=== PATIENT | female | born 1960 | race Caucasian/White ===

== ENCOUNTER → 2016-11-25 | Outpatient (CLI) | payer OTHER ==
[~2016-11-25] MED LIST: NKHM PO
[2016-11-25 07:13] LABS: BASO # 0.1 10*3/uL (0.0-0.1); BASO % 0.7 % (0.0-1.0); EOS # 0.2 10*3/uL (0.0-0.4); EOS % 3.1 % (1.0-4.0); HEMATOCRIT 45.5 % (37.0-47.0); HEMOGLOBIN 15.7 g/dl (12.0-16.0); LYMPH # 2.1 10*3/uL (1.3-4.4); LYMPH % 28.5 % (27.0-41.0); MEAN CELL VOLUME 92.7 fl (81.0-99.0); MEAN CORPUSCULAR HGB CONC 34.5 g/dl (33.0-37.0); MEAN PLATELET VOLUME 10.3 fl (9.6-12.3); MONO # 0.7 10*3/uL (0.1-1.0); MONO % 9.7 % (3.0-9.0); NEUT # 4.1 10*3/uL (2.3-7.9); NEUT % 57.6 % (47.0-73.0); PLATELET COUNT AUTOMATED 218 10*3/uL (130-400); RED BLOOD COUNT 4.91 10*6/uL (4.10-5.10); RED CELL DISTRI WIDTH 12.8 % (0-14.5); WHITE BLOOD COUNT 7.2 10*3/uL (4.8-10.8)
[2016-11-25 07:27] LABS: ALKALINE PHOSPHATASE 61 U/L (45-117); BILIRUBIN, TOTAL 0.4 mg/dl (0.2-1.0); BUN 21 mg/dl (7-24); CARBON DIOXIDE 28 mmol/L (21-32); CHLORIDE 106 mmol/L (98-107); CHOLESTEROL 224 mg/dL (<200); EST GLOM FILT AFRICAN AMERICAN > 60 ml/min; GLUCOSE 92 mg/dL (65-99); HDL CHOLESTEROL 91 mg/dl (40-60); LDL CHOLESTEROL 122 mg/dL (9-159); POTASSIUM 4.3 mmol/L (3.5-5.1); SGOT/AST 16 IU/L (3-35); SGPT/ALT 16 U/L (12-78); SODIUM 140 mmol/L (136-145); TRIGLYCERIDES 54 mg/dl (<150); VLDL CHOLESTEROL 11 mg/dL (6-40)
== END | disposition home or self-care (01) ==
LOC: LAB 06:30
PROVIDERS: Family Medicine
DX: Z00.01 Encounter for general adult medical examination with abnormal findings (principal); E55.9 Vitamin D deficiency, unspecified; R79.89 Other specified abnormal findings of blood chemistry

== ENCOUNTER 2017-03-21 08:26 | Inpatient (IN) | payer OTHER ==
[~2017-03-21] VITALS: Ht 157.5 cm; Wt 46.7 kg
--- NOTE | ~2017-03-21 | ST ---
[place], [place] EXERCISE STRESS TEST REPORT NAME: ESTHER RIVERA UNIT #: [id number] ROOM: 529 DOCTOR: BLAYNE CRAVEN MD BIRTHDATE: [birth year] DOS: 03/22/2017 INDICATION: Chest pain. PROCEDURE: The patient was exercised on treadmill using Alex protocol. The patient exercised for 10 minutes and 30 seconds, reaching 94% of her maximum predicted heart rate. Double product was 30,070. Test was terminated due to achieving target heart rate. No complaint of chest pain, chest pressure, heaviness, tightness. BLOOD PRESSURE RESPONSE: The resting blood pressure 130/86 with ending blood pressure 194/80. ELECTROCARDIOGRAM INTERPRETATION: Resting electrocardiogram showed sinus bradycardia, heart rate of 55, RSR prime in V1, poor R-wave progression, mild nonspecific ST-T changes. At the peak of the stress test, there was no evidence of any significant ST or T-wave changes suggestive of myocardial ischemia. No arrhythmias were noted. SUMMARY: 1. Adequate stress test with above average functional capacity. 2. Negative treadmill stress test for stress induced myocardial ischemia. 3. No arrhythmias were noted. 4. Normal blood pressure at rest with normal blood pressure response to exercise. 5. Nuclear images will be reported separately. BLAYNE CRAVEN MD CM:STRESS:EXERCISE STRESS TEST REPORT [id number] BLAYNE CRAVEN MD
--- NOTE | ~2017-03-21 | CON ---
[place], [place] REPORT OF CONSULTATION NAME: ESTHER RIVERA UNIT #: [id number] ROOM: 529 DOCTOR: MERISSA RICHARDSONGERTRUDESAM BIRTHDATE: [birth year] DOS: 03/22/2017 REQUESTING PHYSICIAN: Dr. Alfonzo Cote REASON FOR CONSULTATION: Chest pain. ASSESSMENT: 1. Current presentation with chest pain. 2. Active tobacco abuse. 3. Unknown level of lipid. 4. Significant early family history of heart disease. PLAN: 1. Cycle cardiac enzymes. 2. Proceed with a walking nuclear stress test. 3. Initiate enteric enteric-coated aspirin 81 mg. 4. Check fasting lipid panel with management for an LDL less than 100 mg/dL. 5. Call for any change in symptoms, should there be any recurrence of chest pain despite the possibility of normal stress test. 6. Early followup with us in [facility] within 2-3 months. HISTORY AND PHYSICAL: The patient is a pleasant 56-year-old female unknown to our practice, was referred by Dr. Cote for further evaluation of complaint of chest pain. Apparently, the patient was resting, pain was substernal, left-sided and subsided. It did reach almost 5/10, radiating to the jaw. The jaw pain was surprisingly more, almost like 8/10. This lasted about 5 minutes. The patient felt slightly dizzy with that. The patient also felt her heart was pounding with that. Never had such complaint in the past. The patient ____ active. She walks with her dog 3 times a day. Most of her walk is uphill without any provoked cardiac complaints. The patient sleeps on one pillow with no reported PND, orthopnea or pedal edema. Never had any symptomatic palpitation or racing heartbeats prior with any dizziness, lightheadedness or near syncope. No fever. No chills. No night sweats. Maintains good appetite. No significant recent weight change. PAST MEDICAL HISTORY: As detailed in my assessment. SOCIAL HISTORY: The patient continues to smoke, has been doing this since her adulthood. No heavy alcohol or illicit drug abuse. FAMILY HISTORY: The patient's father had second heart attack by age 50. Her mother is still alive in her 90s. She has a twin sister without any heart problems. CURRENT MEDICATIONS: Lovenox, Restoril, Zofran, morphine, bisacodyl, Goodrich and Tylenol. ALLERGIES: The patient has no known drug allergies. REVIEW OF SYSTEMS: The patient denies any current headache, diplopia or blurry [place], [place] REPORT OF CONSULTATION NAME: ESTHER RIVERA UNIT #: [id number] ROOM: 529 DOCTOR: BLAYNE CRAVEN MD BIRTHDATE: [birth year] vision. No fever. No chills. No night sweats. No abdominal pain. No bright red blood per rectum or tarry stools. No joint pain. No muscular pain. No anxiety. No depression. No polyuria. No polydipsia. No skin rash. Review of all other systems has been negative. PHYSICAL EXAMINATION: GENERAL: The patient alert, oriented x 3, quite pleasant. VITAL SIGNS: Blood pressure 139/77, heart rate 67, respiration rate of 14, temperature 99. NECK: Good carotid upstroke. Unable to appreciate any bruit. No lymphadenopathy. No thyromegaly. HEART: S1, S2 with a faint holosystolic murmur at the left upper sternal border. No rub. No sternal heave. CHEST AND BACK: No deformities. LUNGS: Clear to auscultation. Good air movement. No wheezing or rales. ABDOMEN: Soft, nontender, present bowel sounds. No masses. No bruits. EXTREMITIES: Lower extremities, no edema. Faint distal pulses. NEUROLOGIC: Grossly nonfocal. SKIN: No significant rash. LABORATORY DATA: White count 7.1, hemoglobin 13.7. Potassium 4.0. GFR more than 60%. Troponin less than 0.015 x 2. Total cholesterol is 221, LDL is 111, HDL is 85 and normal thyroid function test. BLAYNE CRAVEN MD CM:CONSTR:REPORT OF CONSULTATION 1139 03/23/17 1913 interface
--- NOTE | 2017-03-21 15:30 | NUR ---
A 56, admitted to , under the services of DIAMOND Francois DO with a diagnosis of ANGINA. Chief complaint is CHEST PAIN , RIGHT ARM TINGLING . Patient arrived via wheel chair from MD. Monitor applied. Initial assessment completed. Vital signs taken and recorded. DIAMOND FRANCOIS DO notified of admission to the unit. Orders received. See assessment for past medical history, medications and allergies. Patient and/or family oriented to unit. [facility]. Clothing/patient valuable form completed. DEV CEE
[2017-03-21 16:00] VITALS: BP 131/80
[2017-03-21 16:20] LABS: BASO # 0.1 10*3/uL (0.0-0.1); BASO % 0.6 % (0.0-1.0); EOS # 0.2 10*3/uL (0.0-0.4); EOS % 2.3 % (1.0-4.0); HEMATOCRIT 39.9 % (37.0-47.0); HEMOGLOBIN 13.9 g/dl (12.0-16.0); LYMPH # 3.6 10*3/uL (1.3-4.4); MEAN CELL VOLUME 90.3 fl (81.0-99.0); MEAN CORPUSCULAR HGB 31.4 pg (27.0-31.0); MEAN CORPUSCULAR HGB CONC 34.8 g/dl (33.0-37.0); MONO # 0.9 10*3/uL (0.1-1.0); MONO % 9.1 % (3.0-9.0); NEUT # 4.9 10*3/uL (2.3-7.9); NEUT % 50.7 % (47.0-73.0); PLATELET COUNT AUTOMATED 222 10*3/uL (130-400); RED BLOOD COUNT 4.42 10*6/uL (4.10-5.10); RED CELL DISTRI WIDTH 12.3 % (0-14.5); WHITE BLOOD COUNT 9.6 10*3/uL (4.8-10.8)
[2017-03-21 16:29] LABS: ACT PARTIAL THROMBO TIME 26.1 SECONDS (20.8-31.5)
[2017-03-21 16:36] LABS: ALBUMIN 3.8 gm/dl (3.1-4.5); ALKALINE PHOSPHATASE 62 U/L (45-117); BUN 15 mg/dl (7-24); CHLORIDE 105 mmol/L (98-107); CHOLESTEROL 221 mg/dL (<200); CREATININE 0.61 mg/dL (0.55-1.02); HDL CHOLESTEROL 85 mg/dl (40-60); LDL CHOLESTEROL 111 mg/dL (9-159); POTASSIUM 3.5 mmol/L (3.5-5.1); SGOT/AST 20 IU/L (3-35); SODIUM 141 mmol/L (136-145); TOTAL PROTEIN 6.9 gm/dL (6.4-8.2); TRIGLYCERIDES 125 mg/dl (<150); VLDL CHOLESTEROL 25 mg/dL (6-40)
[2017-03-21 16:44] LABS: SGPT/ALT 17 U/L (12-78)
[2017-03-21 16:45] LABS: TROPONIN I < 0.015 ng/ml (<0.045)
--- NOTE | 2017-03-21 18:08 | NUR ---
DR LIMA ANSWERING SERVIE NOTIFIED OF CONSULT
--- NOTE | 2017-03-21 18:38 | NUR ---
IV started right antecubital with #22 angiocath after 1 attempts. The IV site was prepped with Chloraprep. Heparin lock attached Sterile dressing applied. Patient tolerated precedure well. Procedure performed according to [facility] policy & procedure. DEV CEE
[2017-03-21 20:00] VITALS: BP 124/72
[2017-03-22] VITALS: BP 106/43
[2017-03-22 06:37] LABS: BASO # 0.1 10*3/uL (0.0-0.1); BASO % 0.7 % (0.0-1.0); EOS # 0.2 10*3/uL (0.0-0.4); EOS % 3.4 % (1.0-4.0); HEMATOCRIT 39.6 % (37.0-47.0); HEMOGLOBIN 13.7 g/dl (12.0-16.0); LYMPH # 2.5 10*3/uL (1.3-4.4); MEAN CELL VOLUME 90.6 fl (81.0-99.0); MEAN CORPUSCULAR HGB 31.4 pg (27.0-31.0); MEAN CORPUSCULAR HGB CONC 34.6 g/dl (33.0-37.0); MEAN PLATELET VOLUME 10.3 fl (9.6-12.3); MONO # 0.7 10*3/uL (0.1-1.0); MONO % 9.7 % (3.0-9.0); NEUT # 3.6 10*3/uL (2.3-7.9); NEUT % 50.9 % (47.0-73.0); PLATELET COUNT AUTOMATED 220 10*3/uL (130-400); RED BLOOD COUNT 4.37 10*6/uL (4.10-5.10); RED CELL DISTRI WIDTH 12.6 % (0-14.5); WHITE BLOOD COUNT 7.1 10*3/uL (4.8-10.8)
[2017-03-22 06:48] LABS: BUN 16 mg/dl (7-24); CHLORIDE 106 mmol/L (98-107); SODIUM 139 mmol/L (136-145)
[2017-03-22 08:00] VITALS: BP 139/77
--- NOTE | 2017-03-22 08:30 | NUR ---
Long Chain Beamer in to talk to patient. Patient states lives at HOME with HER DAUGHTER. There are 13 steps in the home. Physician: NO PCP Pharmacy: [facility] IN [facility] Home health services: NONE Patient's level of ADLs: INDEPENDENT Patient has working utilities: YES DME: NONE Follow-up physician's appointment after d/c: WILL BE MADE PRIOR TO DC Does patient want to access PORTAL?: Discharge plan HOME. LANDRY BULL
--- NOTE | 2017-03-22 11:41 | NUR ---
INFORMED CONSENT SIGNED FOR CARDIOLYTE STRESS TEST WITH DR. CRAVEN. RESTING EKG SINUS BRADYCARDIA, HR 53, BP 130/86. COMPLETED 10:30 OF A STANDARD ANG PROTOCOL COMPLETING 1:30 STAGE IV, 4.2 MPH/16% GRADE. TEST TERMINATED AT PHYSICIANS DISCRETION. PEAK HEART RATE OF 155 ACHIEVED WHICH IS 94% PREDICTED MAXIMUM AND A PEAK BP OF 194/80. HAS A HIGH EXERCISE TOLERANCE. NO ARRHYTHMIAS OR ST CHANGES NOTED. PT HAD NO C/O. LAST RECOVERY HR 78, BP 158/76. WAITING NUCLEAR SCANNING IN STABLE CONDITION.
[2017-03-22 12:00] VITALS: BP 125/76
[2017-03-22 16:42] VITALS: BP 104/70
--- NOTE | 2017-03-22 18:15 | NUR ---
DR. SANCHEZ NOTIFIED OF DISCHARGE. ORDERS WILL BE PLACED SOON.
--- NOTE | 2017-03-22 18:57 | NUR ---
Discharge instructions reviewed with patient. Patient receptive and verbalizes understanding. Written instructions given to patient. MONCHO PERLA
== END 2017-03-22 18:57 | disposition home or self-care (01) | DRG 206 ==
LOC: RESCLI 08:26 → 5E 15:03
PROVIDERS: Internal Medicine; ADMIT Emergency Medicine
PROC: 4A02XM4 Measurement of Cardiac Total Activity, External Approach (ICD-10-PCS; principal; 2017-03-22)
DX: M94.0 Chondrocostal junction syndrome [Tietze] (principal); E78.5 Hyperlipidemia, unspecified; K21.9 Gastro-esophageal reflux disease without esophagitis; F41.9 Anxiety disorder, unspecified; R09.1 Pleurisy; Z71.6 Tobacco abuse counseling; Z72.0 Tobacco use; Z98.51 Tubal ligation status; Z82.49 Family history of ischemic heart disease and other diseases of the circulatory system; Z80.3 Family history of malignant neoplasm of breast

== ENCOUNTER → 2017-03-29 | Outpatient (CLI) | payer OTHER | END | disposition home or self-care (01) | LOC: MAMMO 03:45 | DX: Z12.31 Encounter for screening mammogram for malignant neoplasm of breast (principal) ==

== ENCOUNTER → 2018-03-10 | Day surgery (SDC) | payer OTHER ==
[~2018-03-10] VITALS: Ht 154.9 cm; Wt 47.6 kg
[~2018-03-10] MED LIST changes: +MULTIPLE VITAM1 EACH PO; +PROBIOTIC1 EAC1 PO
--- NOTE | ~2018-03-10 | PROC NOTE ---
[place], [place] PROCEDURE NOTE [facility]: [id number] UNIT #: [id number] ROOM: DOCTOR: RAMAN SAAVEDRA MD BIRTHDATE: [birth year] DOS: 03/10/2018 PREOPERATIVE DIAGNOSIS: Epigastric pain, screening examination. POSTOPERATIVE DIAGNOSES: Hiatal hernia, gastritis, duodenitis, colon polyps. PROCEDURE: EGD with antral biopsies x 2, colonoscopy with polypectomy x 2. ENDOSCOPIST: Raman Saavedra M.D. PAINTER AND BODY MECHANIC APPRENTICE: AYE. ANESTHESIA: MAC. INDICATIONS: This is a 57-year-old lady with a history of previous epigastric pain who is here for the above-mentioned procedure. She also desires a screening colonoscopy. The procedure and its complications were explained to the patient in detail preoperatively. Complications that were discussed included, but were not limited to, bleeding, colon perforation, stomach perforation, missed lesions and prolonged pain. She agreed to proceed. DESCRIPTION OF PROCEDURE: After identifying the patient, the patient was brought to the endoscopy suite and placed in the left lateral position. After IV sedation was administered by the anesthesia team, a timeout procedure was called and a bite block was placed and EGD was performed first, adult gastroscope was introduced into the mouth and advanced into the pharynx, esophagus, stomach and the first 2 parts of the duodenum. There was found to be a small hiatal hernia, but no esophagitis. There was also found to be mild antral gastritis and also a mild duodenitis. These findings were confirmed on retroflexion of the gastroscope in the stomach. Two random antral biopsies were taken and sent for histopathological diagnosis. The scope was then withdrawn and the patient was then prepared for a colonoscopy. A digital rectal exam was performed, which was within normal limits. Adult colonoscope was introduced into the anal canal and advanced sequentially into the rectum, sigmoid colon, descending colon, transverse colon and ascending colon up to the cecum. Upon reaching the cecum, the scope was withdrawn. The prep was found to be optimal. There were found to be two small polyps in the region of the sigmoid colon at approximately 20 cm from the anal verge. These were removed with the help of biopsy forceps and sent for histopathological diagnosis. After hemostasis was confirmed, the scope was withdrawn and the patient was brought back to the recovery room in stable fashion. There were no complications. Dr. Raman Saavedra, the attending endoscopist, was present throughout the operating case. Based on these findings, the patient is recommended to have another colonoscopy in 3-5 years or sooner if she had new symptoms appear. These findings were discussed with the patient's family as well as the patient itself in the recovery room. [place], [place] PROCEDURE NOTE NAME: ESTHER RIVERA JO UNIT #: [id number] ROOM: DOCTOR: RAMAN SAAVEDRA MD BIRTHDATE: [birth year] Raman Saavedra MD CM:PROCNOTE:PROCEDURE NOTE 2 RAMAN SAAVEDRA MD
[2018-03-10 06:56] VITALS: BP 112/63
[2018-03-10 07:55] VITALS: BP 78/43
[2018-03-10 08:10] VITALS: BP 105/65
[2018-03-10 08:24] VITALS: BP 110/72
== END | disposition home or self-care (01) ==
LOC: SDC 03-06 09:30
DX: Z12.11 Encounter for screening for malignant neoplasm of colon (principal); K63.5 Polyp of colon; K29.50 Unspecified chronic gastritis without bleeding; K29.80 Duodenitis without bleeding; K44.9 Diaphragmatic hernia without obstruction or gangrene; F17.210 Nicotine dependence, cigarettes, uncomplicated; Z98.51 Tubal ligation status; Z98.890 Other specified postprocedural states